=== PATIENT | male | born 1945 | race Caucasian/White ===

== ENCOUNTER 2018-02-18 10:08 | Emergency (ER) | payer OTHER, MEDICARE, BC ==
[~2018-02-18] VITALS: Ht 177.8 cm; Wt 93.0 kg
[2018-02-18] MEDS ORDERED: MEDDOSEPAK PO (11:10)
[2018-02-18] MEDS ORDERED: TORADOL PO (11:10)
[2018-02-18 11:16] VITALS: BP 172/95
[2018-02-19] MEDS ORDERED: BYSTOLIC5 MG PO (12:39)
[2018-02-19] MEDS ORDERED: LANTUS100 UNIT/M SC (12:40)
[2018-02-19] MEDS ORDERED: LISINOPRIL20 MG PO (14:52)
[2018-02-19] MEDS ORDERED: TRULICITY0.75 MG/0. SC (14:53)
== END 2018-02-18 11:23 | disposition home or self-care (01) | DRG 605 ==
LOC: ED 10:08
DX: S40.012A Contusion of left shoulder, initial encounter (principal); S60.222A Contusion of left hand, initial encounter; E11.9 Type 2 diabetes mellitus without complications; I10 Essential (primary) hypertension; V89.2XXA Person injured in unspecified motor-vehicle accident, traffic, initial encounter

== ENCOUNTER 2018-02-19 12:21 | Inpatient (IN) | payer MEDICARE, BC, OTHER ==
[~2018-02-19] VITALS: Ht 177.8 cm; Wt 97.1 kg
[~2018-02-19 12:21] MED LIST: MEDDOSEPAK PO; TORADOL PO
--- NOTE | 2018-02-19 12:27 | NUR ---
PT BROUGHT INTO ER PER EMS. ALERT/ORIENTED X3
--- NOTE | 2018-02-19 12:35 | NUR ---
PATIENT MEDICATED WITH 12.5 MG OF PHENERGAN AND 4 MG OF MORPHINE IV. IV FLUID BOLUS INFUSING WELL. REPORTS NORMALLY HAVING LOOSE STOOLS. INFORMED TO CALL FOR ASSISTANCE, CALL LIGHT PLACED WITHIN REACH.
[2018-02-19] MEDS ORDERED: BYSTOLIC5 MG PO (12:39)
[2018-02-19] MEDS ORDERED: LANTUS100 UNIT/M SC (12:40)
[2018-02-19 12:53] LABS: HEMATOCRIT 46.3 % (39.0-50.0); HEMOGLOBIN 16.7 g/dl (14.0-18.0); IMMATURE GRANULOCYTES 0.6 % (0.0-1.0); MEAN CELL VOLUME 95.1 fL CALC (80.0-100.0); MEAN CORPUSCULAR HGB 34.3 pG CALC (26.0-32.0); MEAN CORPUSCULAR HGB CONC 36.1 g/L CALC (32.0-36.0); NEUT# 19.52 thou/uL (1.82-7.42); RED BLOOD COUNT 4.87 mill/uL (4.70-6.10); RED CELL DISTRI WIDTH 11.7 % (11.5-15.5)
[2018-02-19 13:01] LABS: ALBUMIN 4.7 g/dL (3.2-5.0); ALKALINE PHOSPHATASE 141 u/l (38-126); AMYLASE 998 u/l (30-110); ANION GAP 22 (6-22 (CALC)); BUN 19 mg/dL (8-23); BUN/CREATININE RATIO 17 (12-20 (CALC)); CARBON DIOXIDE 23 mmol/l (22-30); CHLORIDE 98 mmol/l (95-108); CREATININE 1.1 mg/dL (0.7-1.3); GFR > 60 ML/MIN (>=60 (CALC)); GFR FOR AFR.AMER. > 60 ML/MIN (>=60 (CALC)); POTASSIUM 3.9 mmol/l (3.5-5.1); SGOT/AST 43 u/l (19-48); SGPT/ALT 80 u/l (11-66); SODIUM 139 mmol/l (137-146)
[2018-02-19 13:08] LABS: LIPASE 13266 u/l (23-300)
--- NOTE | 2018-02-19 13:13 | NUR ---
PATIENT RESTING ON STRETCHER WITH GRIMIS ON FACE, REPORTS UPPER ABDOMINAL PAIN LEVEL 8/10. WARM BLANKET PROVIDIED PER REQUEST. UPDATED ON PLAN OF CARE, URINAL PROVIDED AND INFORMED OF UA ORDER. VERBAL UNDERSTANDING.
--- NOTE | 2018-02-19 13:30 | NUR ---
MANUAL BP 202/100, HR 89. INFORMED. WAITING FOR NEW ORDERS.
--- NOTE | 2018-02-19 14:23 | NUR ---
SBAR PRINTED TO FLOOR
--- NOTE | 2018-02-19 14:35 | NUR ---
PATIENT RETURNS FROM RADIOLOGY DEPARTMENT WITH EMESIS BAG CONTAINING 75 ML OF BILE COLORED EMESIS. MEDICATED WITH 25 MG OF PHENERGAN AND 4 MG OF MORPHINE FOR ABDOMINAL PAIN. MD AWARE OF ELEVATED BP, AWAITING NEW ORDERS,
--- NOTE | 2018-02-19 14:50 | NUR ---
1.25 MG OF ENALAPRILAT IV GIVEN IV SLOW PUSH. WILL CONTINUE TO MONITOR PATIENT.
[2018-02-19] MEDS ORDERED: LISINOPRIL20 MG PO (14:52)
[2018-02-19] MEDS ORDERED: TRULICITY0.75 MG/0. SC (14:53)
--- NOTE | 2018-02-19 15:07 | NUR ---
ATTEMPT MADE TO CALL REPORT, SPOKE TO CASTILLO. STATES "THE NURSE WILL CALL YOU BACK."
--- NOTE | 2018-02-19 15:07 | NUR ---
MANUAL BP OF 190/90, HR OF 93 BPM. MD INFORMED.
--- NOTE | 2018-02-19 15:15 | NUR ---
REPORT CALLED TO ADDI MOORE. REQUEST TO HOLD PATIENT IN ER FOR 15 MINUTES FOR BP EVAL.
--- NOTE | 2018-02-19 15:20 | NUR ---
REPORT GIVEN TO ADDI ACEVEDO. CARE RELINQUISHED.
--- NOTE | 2018-02-19 15:40 | NUR ---
INFORMED OF ELEVATED BP.
--- NOTE | 2018-02-19 16:31 | NUR ---
PT PROVIDED WITH APRESOLINE 20 MG AT THIS TIME FOR PERSISTENT HIGH BP.
--- NOTE | 2018-02-19 16:50 | NUR ---
Admission Note Report Given to: SBAR PRINTED TO FLOOR Transported by: Wheelchair X Stretcher Transported with: X Nurse Transporter X Patent IV O2 Barrel Turner
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
[2018-02-19 17:35] VITALS: BP 169/90
--- NOTE | 2018-02-19 18:27 | NUR ---
MEDICATED WITH MORPHINE 2MG IVP FOR C/O 10/10 ABD PAIN. MOUTH SWABS PROVIDED FOR COMFORT.
[2018-02-19 19:07] VITALS: BP 180/97
--- NOTE | 2018-02-19 19:45 | NUR ---
BEDSIDE REPORT RECEIVED FROM ADDI MOORE. PT RESTING IN BED ON LEFT SIDE; ALERT AND ORIENTED. C/O SEVERE ABDOMINAL PAIN 10/10 WITH FACIAL GRIMACING. MORPHINE ADMINISTERED AN HOUR PRIOR. RESPIRATIONS EVEN AND UNLABORED ON ROOM AIR. PT ALSO C/O NAUSEA. REMAINS NPO. BLOOD PRESSURE ELVEATED AT THIS TIME WELL. WILL MEDICATE ORDERED AND MONITOR. SAFETY MEASURES IN PLACE. CALL LIGHT WITHIN REACH.
[2018-02-19 21:10] VITALS: BP 200/110
--- NOTE | 2018-02-19 21:30 | NUR ---
MORPHINE WAS ADMINISTRED WITH MINIMAL EFFECT AND BLOOD PRESSURE ELEVATED TO 200/110. EKG COMPLETED AND TELEMETRY APPLIED. NEW ORDERS TO CHANGE FROM MORPHINE TO DILAUDID AND RESTART HOME BLOOD PRESSURE MEDICATIONS. DIALUDID AND ZOFRAN GIVEN ALONG WITH LISINOPRIL AND PAIN DECREASED TO 5/10; BLOOD PRESSURE DECREASED WELL. PLAN OF CARE REVIEWED WITH PT AT THIS TIME. PT ENCOURAGED TO VERBALIZE CONCERNS. STATES UNDERSTANDING. SAFETY MEASURES IN PLACE. CALL LIGHT WITHIN REACH.
[2018-02-19 23:37] VITALS: BP 169/89
--- NOTE | 2018-02-20 | NUR ---
PT RESTING IN BED WITH EYES CLOSED AND NO SIGNS OF DISTRESS. IV FLUIDS INFUSING WITHOUT DIFFICULTY; IV SITE APPEARS HEALTHY. PT REMINDED TO CALL PRN FOR STAND BY ASSIST DUE TO MEDICATIONS AND ATTACHMENTS. NO REQUESTS OR COMPLAINTS AT THIS TIME. SAFETY MEASURES IN PLACE. CALL LIGHT WITHIN REACH.
[2018-02-20 00:12] LABS: URINE BILIRUBIN - DIPSTICK NEGATIVE (NEGATIVE); URINE BLOOD DIPSTICK NEGATIVE (NEGATIVE); URINE COLOR YELLOW; URINE GLUCOSE - DIPSTICK >=1000 mg/dL (NEGATIVE); URINE KETONE 40 mg/dL (NEGATIVE); URINE LEUK ESTERASE NEGATIVE (NEGATIVE); URINE NITRITE - DIPSTICK NEGATIVE (Negative); URINE PH 5.5 (4.5-8.0); URINE PROTEIN - DIPSTICK NEGATIVE (NEG-TRACE); URINE UROBILINOGEN - DIPSTICK 0.2 E.U./dL (0.2)
[2018-02-20 00:19] LABS: URINE CLARITY CLEAR
--- NOTE | 2018-02-20 01:08 | NUR ---
GLASS DRILLER NOTIFED NURSE OF HEART RATE IN THE 140'S. PT FOUND AMBULATING IN THE BATHROOM; HEART RATE DECREASED WITH REST. BLOOD SUGAR WAS RECHECKED ACCU CHECK AT 2100 WAS 342. BLOOD SUGAR INCREASED TO 399; ASYMPTOMATIC. WILL CONTINUE TO MONITOR FOR SIGNS OF HYPERGLYCEMIA AND RECHECK IN THE MORNING. PT STATES THAT HE DOES TAKE INSULIN AT HOME. PT HAS BEEN NPO SINCE ADMISSION.
--- NOTE | 2018-02-20 04:00 | NUR ---
PT ASLEEP AT THIS TIME WITH NO SIGNS OF DISTRESS. RESPIRATIONS EVEN AND UNLABORED; OXYGEN SATURATION DECREASED TO 87% AFTER LAST DOSE OF DILAUDID ADMINISTERED; O2 APPLIED AT 2L VIA NC AND SATURATIONS ARE NOW ABOVE 90%, WILL CONTINUE TO MONITOR. SAFETY MEASURES IN PLACE. CALL LIGHT WITHIN REACH.
[2018-02-20 04:10] VITALS: BP 123/77
[2018-02-20 06:09] LABS: ALBUMIN 4.3 g/dL (3.2-5.0); BILIRUBIN, TOTAL 1.2 mg/dL (0.0-1.4); CREATININE 1.7 mg/dL (0.7-1.3); MAGNESIUM 1.5 mg/dL (1.6-2.3); TOTAL PROTEIN 7.1 g/dL (6.3-8.2)
[2018-02-20 06:17] LABS: HEMATOCRIT 51.7 % (39.0-50.0); HEMOGLOBIN 17.3 g/dl (14.0-18.0); IMMATURE GRANULOCYTES 0.6 % (0.0-1.0); MEAN CORPUSCULAR HGB 34.1 pG CALC (26.0-32.0); MEAN CORPUSCULAR HGB CONC 33.5 g/L CALC (32.0-36.0); NEUT# 24.39 thou/uL (1.82-7.42); RED BLOOD COUNT 5.07 mill/uL (4.70-6.10); RED CELL DISTRI WIDTH 12.2 % (11.5-15.5)
--- NOTE | 2018-02-20 06:27 | NUR ---
DILAUDID GIVEN FOR MODERATE ABDOMINAL PAIN. OXYGEN SATURATION PRIOR TO ADMINISTRATION 90% ON ROOM AIR. APPLIED O2 AND SATURATION UP TO 95%. PT EDUCATED ON USE OF OXYGEN AND SIDE EFFECTS OF DILAUDID RELATED TO BREATHING. ABDOMEN IS MORE FIRM THAN START OF SHIFT WITH MORE PAIN TOWARDS RUQ. WILL CONTINUE TO MONITOR.
[2018-02-20 08:20] VITALS: BP 136/87
--- NOTE | 2018-02-20 08:20 | NUR ---
PT IS SITTING UP IN THE BED, ABD IS SWOLLEN AND TAUNT. IV SITE IS FREE FROM REDNESS OR EDMEA. HR IS REG,PULSES ARE STRONG X4,ABD IS SOFT WITH ACTIVE BS. CONTINUE TO OSBERVE AND MONITOR.
--- NOTE | 2018-02-20 09:28 | NUR ---
SPOKE WITH ROSY @[phone] TO CONSULT FOR SURGERY.
[2018-02-20 11:18] VITALS: BP 151/94
[2018-02-20 11:53] LABS: CHOLESTEROL HDL RATIO 3.4 (<4.4 (CALC))
--- NOTE | 2018-02-20 12:30 | NUR ---
PT HAD CT SCAN OF THE ABD. DR. CASTANO IN TO VISIT WITH PT. ORDERS FOR TRANSFER OBTAINED. WAITING ON A BED, IV SITE IS FREE FROM REDNESS OR EDMEA.
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
== END 2018-02-20 14:42 | DRG 439 ==
LOC: ED 12:21 → ED-I 14:00 → ED 14:07 → MS2 14:08
PROVIDERS: Family Medicine; Nurse Practitioner Family; ADMIT Internal Medicine; ATTEND Internal Medicine
DX: K85.80 Other acute pancreatitis without necrosis or infection (principal); N17.9 Acute kidney failure, unspecified; E11.9 Type 2 diabetes mellitus without complications; E83.42 Hypomagnesemia; I16.0 Hypertensive urgency; I10 Essential (primary) hypertension; E78.5 Hyperlipidemia, unspecified; F10.20 Alcohol dependence, uncomplicated; S30.1XXD Contusion of abdominal wall, subsequent encounter; V49.40XD Driver injured in collision with unspecified motor vehicles in traffic accident, subsequent encounter; Z79.4 Long term (current) use of insulin
CPT/HCPCS: S0164